=== PATIENT | male | born 1940 | race Caucasian/White ===

== ENCOUNTER → 2016-06-20 | Outpatient (CLI) | payer MEDICARE, OTHER ==
[~2016-06-20] MED LIST: ADVAIR 250-501 EACH INH; ALBUTEROL2.5 MG/3 M INH; ASPIR 8181 MG PO; CO Q-1010 MG PO; CRESTOR5 MG PO; D3-20002000 UNIT PO; DIAMOX 250 MG250 MG PO; EFFIENT10 MG PO; FLONASE 0.05% N16 GM; HYGROTON TAB 2525 MG PO; ISOSORBIDE MONO60 MG PO; LANTUS100 UNIT/1 SQ; LASIX40 MG PO; LOPRESSOR 25 MG25 MG PO; MULTIVITAMINS1 EAC1 PO; NORVASC5 MG PO; NOVOLOG FL100 UNIT/1 SQ; PREDNISONE 10 M10 MG PO; SPIRIVA18 MCG INH; SYNTHROID50 MCG PO; VENTOLIN HFA 66.7 GM INH; ZESTRIL 40 MG T40 MG PO; ZOLOFT50 MG PO
== END ==
LOC: RT 12:05
DX: J44.9 Chronic obstructive pulmonary disease, unspecified (principal); J96.10 Chronic respiratory failure, unspecified whether with hypoxia or hypercapnia
CPT/HCPCS: 36600; 82803

== ENCOUNTER 2016-09-08 16:32 | Emergency (ER) | payer MEDICARE, OTHER ==
[2016-09-29] MEDS ORDERED: NORVASC5 MG PO (03:16)
[2016-09-29] MEDS ORDERED: ADVAIR 250-501 EACH INH (03:16)
[2016-09-29] MEDS ORDERED: ASPIR 8181 MG PO (03:17)
[2016-09-29] MEDS ORDERED: HYGROTON TAB 2525 MG PO (03:18)
[2016-09-29] MEDS ORDERED: CRESTOR5 MG PO (03:19)
[2016-09-29] MEDS ORDERED: CO Q-1010 MG PO (03:19)
[2016-09-29] MEDS ORDERED: EFFIENT10 MG PO (03:21)
[2016-09-29] MEDS ORDERED: ALBUTEROL2.5 MG/3 M INH (03:21)
[2016-09-29] MEDS ORDERED: LASIX40 MG PO (03:23)
[2016-09-29] MEDS ORDERED: FLONASE 0.05% N16 GM (03:23)
[2016-09-29] MEDS ORDERED: ISOSORBIDE MONO60 MG PO (03:24)
[2016-09-29] MEDS ORDERED: SYNTHROID50 MCG PO (03:26)
[2016-09-29] MEDS ORDERED: LANTUS100 UNIT/1 SQ (03:27)
[2016-09-29] MEDS ORDERED: LOPRESSOR 25 MG25 MG PO (03:27)
[2016-09-29] MEDS ORDERED: NOVOLOG FL100 UNIT/1 SQ (03:28)
[2016-09-29] MEDS ORDERED: PREDNISONE 10 M10 MG PO (03:28)
[2016-09-29] MEDS ORDERED: D3-20002000 UNIT PO (03:30)
[2016-09-29] MEDS ORDERED: ZOLOFT50 MG PO (03:30)
[2016-09-29] MEDS ORDERED: SPIRIVA18 MCG INH (03:30)
[2016-09-29] MEDS ORDERED: VENTOLIN HFA 66.7 GM INH (03:31)
[2016-09-29] MEDS ORDERED: MULTIVITAMINS1 EAC1 PO (03:32)
[2016-09-29] MEDS ORDERED: ZESTRIL 40 MG T40 MG PO (03:36)
[2016-10-03] MEDS ORDERED: DIAMOX 250 MG250 MG PO (16:27)
== END 2016-09-08 20:45 | disposition home or self-care (01) ==
LOC: ER1 16:32
DX: J44.0 Chronic obstructive pulmonary disease with (acute) lower respiratory infection (principal); J18.1 Lobar pneumonia, unspecified organism; R73.9 Hyperglycemia, unspecified; I51.9 Heart disease, unspecified; Z87.891 Personal history of nicotine dependence; Z88.5 Allergy status to narcotic agent; Z91.040 Latex allergy status; Z90.49 Acquired absence of other specified parts of digestive tract; Z99.81 Dependence on supplemental oxygen
CPT/HCPCS: 71010; 82962; 93005; 99285